=== PATIENT | male | born 1960 | race Caucasian/White ===

== ENCOUNTER 2016-08-21 12:41 | Emergency (ER) | payer OTHER ==
[2016-08-21 12:46] VITALS: BP 134/103; PULSE 88; RESP 18; TEMP 98.3; O2SAT 96
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
[2016-08-21] MEDS ORDERED: KETOROLAC TROMETHAMINE 60 MG/2 ML (IM) VIAL IM ONE (13:00)
[2016-08-21] MEDS ORDERED: DEXAMETHASONE SOD PHOS 20 MG/5 ML VIAL IM ONE (13:00)
[2016-08-21] MEDS ORDERED: ORPHENADRINE INJ 60 MG/2 ML AMP IM ONE (13:00)
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
[2016-08-21] MEDS ORDERED: CYCL1TAB29 PO (14:14)
[2016-08-21] MEDS ORDERED: IBUP800T23 PO (14:14)
[2016-08-21 14:28] VITALS: BP 150/88
== END 2016-08-21 14:33 | disposition home or self-care (01) ==
LOC: PHEFT 12:41
DX: S16.1XXA Strain of muscle, fascia and tendon at neck level, initial encounter (principal); S39.012A Strain of muscle, fascia and tendon of lower back, initial encounter; M62.830 Muscle spasm of back; V63.5XXA Driver of heavy transport vehicle injured in collision with car, pick-up truck or van in traffic accident, initial encounter; Y92.410 Unspecified street and highway as the place of occurrence of the external cause; Y99.0 Civilian activity done for income or pay
CPT/HCPCS: 72040; 72100; 96372; 99284; J1100; J1885; J2360